=== PATIENT | female | born 1965 | race Caucasian/White ===

== ENCOUNTER 2017-12-11 08:16 | Inpatient (IN) | payer BC ==
[~2017-12-11] VITALS: Ht 154.9 cm; Wt 90.4 kg
[~2017-12-11 08:16] MED LIST: ALBU6.7H INH; EPIN0.1516 IM; EPIN0.3A3 IM; EPIN0.3P17 IM; PRED10TA PO
[2017-12-11] MEDS ORDERED: nitroGLYCERIN 0.4mg SUBLingual tab SL PRN ×2 (08:20→10:00)
[2017-12-11] MEDS ORDERED: aspirin 81mg tab.chew PO ONE (08:20)
[2017-12-11 08:50] LABS: BASOPHILS % (AUTO) 0.6 % (0-1); EOSINOPHILS # (AUTO) 0.2 X10'3 (0-0.9); EOSINOPHILS % (AUTO) 2.4 % (0-6); HEMATOCRIT 42.2 % (35.0-45.0); HEMOGLOBIN 14.6 g/dl (12.0-16.0); LYMPHOCYTES # (AUTO) 1.9 X10'3 (1.1-4.8); MEAN CORPUSCULAR HEMOGLOBIN 30.8 PG (27.0-31.0); MEAN CORPUSCULAR HGB CONC 34.5 % (33.0-36.5); MEAN CORPUSCULAR VOLUME 89.2 FL (78-98); MONOCYTES # (AUTO) 0.5 X10'3 (0-0.9); MONOCYTES % (AUTO) 6.4 % (2-12); NEUTROPHILS # (AUTO) 4.5 X10'3 (1.8-7.7); NEUTROPHILS % (AUTO) 63.6 % (42-75); PLATELET COUNT 331 X10'3 (140-440); RED BLOOD COUNT 4.74 X10'6 (4.20-5.60); RED CELL DISTRIBUTION WIDTH 13.4 % (11.5-14.5); WHITE BLOOD COUNT 7.1 X10'3 (4.5-11.0)
[2017-12-11 09:08] LABS: ALANINE AMINOTRANSFERASE 43 U/L (12-78); ALBUMIN 3.2 G/DL (3.4-5.0); ALBUMIN/GLOBULIN RATIO 0.9 (1.1-1.5); ALKALINE PHOSPHATASE 84 IU/L (46-116); ANION GAP 13 (8-16); ASPARTATE AMINO TRANSFERASE 23 U/L (10-37); BILIRUBIN,TOTAL 0.4 MG/DL (0.1-1.0); BLOOD UREA NITROGEN 9 MG/DL (7-18); BUN/CREATININE RATIO 15.3 (6.6-38.0); CHLORIDE 103 MMOL/L (99-107); CREATININE 0.59 MG/DL (0.40-0.90); GLUCOSE 120 MG/DL (70-104); POTASSIUM 3.5 MMOL/L (3.5-5.1); SODIUM 140 MMOL/L (135-145); TOTAL CARBON DIOXIDE 24.4 MMOL/L (24-32); TOTAL PROTEIN 6.8 G/DL (6.4-8.2); eGFR > 90 ML/MIN
[2017-12-11 09:15] LABS: MAGNESIUM 1.8 MG/DL (1.5-2.4)
[2017-12-11] MEDS ORDERED: NO HOME MEDS (09:29)
[2017-12-11] MEDS ORDERED: CAFFEINE CITRATE 60 MG/3 ML injection vial IV PRN (10:00)
[2017-12-11] MEDS ORDERED: magnesium 1gm/100ml D5W IVPB 100 ML IV PRN (10:00)
[2017-12-11] MEDS ORDERED: ondansetron/PF 4mg/2ml inj IV PRN (10:00)
[2017-12-11] MEDS ORDERED: normal saline 1000ml 1,000 ML IV SCH (10:00)
[2017-12-11] MEDS ORDERED: acetaminophen 325mg tablet PO PRN (10:00)
[2017-12-11] MEDS ORDERED: regadenoson 0.4mg/5ml syringe IV PRN (10:00)
[2017-12-11] MEDS ORDERED: magnesium 4gm in 100ml NS 100 ML IV PRN (10:00)
[2017-12-11] MEDS ORDERED: potassium Cl 20 mEq SR tablet PO PRN ×2 (10:00)
[2017-12-11] MEDS ORDERED: HYDROcodone/acetaminophen 5mg/325mg tablet PO PRN (10:00)
[2017-12-11] MEDS ORDERED: potassium Cl 40MEQ/NS 500ml 500 ML IV PRN ×2 (10:00)
[2017-12-11] MEDS ORDERED: magnesium Cl slow-release 64mg tablet PO PRN (10:00)
[2017-12-11] MEDS ORDERED: morphine 2 MG/ML inj. syringe IV PRN (10:00)
[2017-12-11] MEDS ORDERED: docusate sod 100mg capsule PO PRN (10:00)
[2017-12-11] MEDS ORDERED: metoprolol tartrate 1mg/ml inj IV PRN (10:00)
[2017-12-11] MEDS ORDERED: mag hydrox/Alum hydrox/simeth 30ml oral suspension PO PRN (10:00)
[2017-12-11 11:45] VITALS: BP 155/79
[2017-12-11 12:47] LABS: CHOLESTEROL 187 MG/DL (0-200); HDL CHOLESTEROL 31 MG/DL (35-60); LDL CHOLESTEROL 139 MG/DL (50-100); TRIGLYCERIDES 165 MG/DL (20-135)
[2017-12-11 12:51] LABS: HEMOGLOBIN A1C 5.7 % (4.5-6.2)
[2017-12-11 18:00] VITALS: BP 149/56
[2017-12-11] MEDS: heparin, porcine 5000 units/ml vial SQ SCH (20:40)
[2017-12-11] MEDS ORDERED: temazepam 15mg capsule PO PRN (21:00)
[2017-12-11 22:00] VITALS: BP 120/56
[2017-12-12] VITALS (18 sets, daily range): BP systolic 101–176; BP diastolic 54–89
[2017-12-12 07:14] LABS: BASOPHILS # (AUTO) 0.1 X10'3 (0-0.2); EOSINOPHILS # (AUTO) 0.2 X10'3 (0-0.9); EOSINOPHILS % (AUTO) 2.8 % (0-6); HEMATOCRIT 40.5 % (35.0-45.0); HEMOGLOBIN 14.1 g/dl (12.0-16.0); LYMPHOCYTES # (AUTO) 1.9 X10'3 (1.1-4.8); LYMPHOCYTES % (AUTO) 28.7 % (21-51); MEAN CORPUSCULAR HEMOGLOBIN 30.7 PG (27.0-31.0); MEAN CORPUSCULAR VOLUME 87.8 FL (78-98); MEAN PLATELET VOLUME 7.7 FL (7.4-10.4); MONOCYTES # (AUTO) 0.4 X10'3 (0-0.9); MONOCYTES % (AUTO) 6.4 % (2-12); NEUTROPHILS % (AUTO) 61.1 % (42-75); PLATELET COUNT 347 X10'3 (140-440); RED BLOOD COUNT 4.61 X10'6 (4.20-5.60); RED CELL DISTRIBUTION WIDTH 13.8 % (11.5-14.5); WHITE BLOOD COUNT 6.5 X10'3 (4.5-11.0)
[2017-12-12 07:27] LABS: GLUCOSE 116 MG/DL (70-104); POTASSIUM 3.6 MMOL/L (3.5-5.1); SODIUM 140 MMOL/L (135-145)
[2017-12-12 07:28] LABS: ALBUMIN 2.9 G/DL (3.4-5.0); ANION GAP 9 (8-16); BLOOD UREA NITROGEN 9 MG/DL (7-18); BUN/CREATININE RATIO 14.3 (6.6-38.0); CALCIUM 8.1 MG/DL (8.5-10.1); CHLORIDE 105 MMOL/L (99-107); CREATININE 0.63 MG/DL (0.40-0.90); MAGNESIUM 1.9 MG/DL (1.5-2.4); TOTAL CARBON DIOXIDE 26.4 MMOL/L (24-32); eGFR > 90 ML/MIN
[2017-12-12] MEDS ORDERED: K and/or MAG REPLACEMENT MC SCH (08:00)
[2017-12-12] MEDS: heparin, porcine 5000 units/ml vial SQ SCH (08:05)
[2017-12-12] MEDS ORDERED: CAFFEINE CITRATE 60 MG/3 ML injection vial IV ONE (09:03)
[2017-12-12] MEDS ORDERED: regadenoson 0.4mg/5ml syringe IV ONE (09:03)
[2017-12-12] MEDS ORDERED: amLODIPine 5mg tablet PO SCH (11:30)
[2017-12-12] MEDS ORDERED: cloNIDine 0.1 mg tablet PO PRN (11:30)
[2017-12-12] MEDS ORDERED: ASPI-1071 PO (11:34)
[2017-12-12] MEDS ORDERED: NOR5T PO (11:34)
[2017-12-13] MEDS ORDERED: aspirin 81mg tablet.DR PO SCH (08:00)
== END 2017-12-12 15:15 | disposition home or self-care (01) | DRG 313 ==
LOC: ER 08:16 → ED HOLD 10:00 → PCU 3S 11:45
PROVIDERS: ADMIT Internal Medicine; ATTEND Internal Medicine
PROC: 4A02XM4 Measurement of Cardiac Total Activity, External Approach (ICD-10-PCS; principal; 2017-12-12)
PROC: 3E033HZ Introduction of Radioactive Substance into Peripheral Vein, Percutaneous Approach (ICD-10-PCS; 2017-12-12)
DX: R07.89 Other chest pain (principal); R03.0 Elevated blood-pressure reading, without diagnosis of hypertension; E66.01 Morbid (severe) obesity due to excess calories; R16.0 Hepatomegaly, not elsewhere classified; Z88.1 Allergy status to other antibiotic agents; Z88.8 Allergy status to other drugs, medicaments and biological substances; Z88.0 Allergy status to penicillin; Z91.030 Bee allergy status; Z91.018 Allergy to other foods; Z68.37 Body mass index [BMI] 37.0-37.9, adult; Z79.899 Other long term (current) drug therapy
CPT/HCPCS: 36415; 71045; 76700; 78452; 80048; 80053; 80061; 83036; 83735; 83880; 84484; 85025; 93005; 93017; 93306; 99285; A9500; J1644; J2270; J7030

== ENCOUNTER 2018-07-27 09:19 | Outpatient (CLI) | payer BC ==
[~2018-07-27 09:19] MED LIST changes: -ALBU6.7H INH; +ASPI-1071 PO; +BARIUM SULFATE 340 ML SUSP.RECON***PROCEDURE AREA ONLY**DONT ENTER PO ONE; +BARIUM SULFATE/METHYLCELLULOSE 600 ML SUSPENSION BOTTLE**DONT ENTER PO ONE; -EPIN0.1516 IM; -EPIN0.3A3 IM; -EPIN0.3P17 IM; +NOR5T PO; -PRED10TA PO; +SIMETHICONE/SOD BICARB/CIT AC PACKET PO ONE
== END 2018-07-27 23:59 | disposition home or self-care (01) ==
LOC: RAD 09:19
PROVIDERS: ATTEND Family Medicine
DX: K44.9 Diaphragmatic hernia without obstruction or gangrene (principal); K22.2 Esophageal obstruction
CPT/HCPCS: 74245

== ENCOUNTER 2019-07-12 09:48 | Emergency (ER) | payer BC ==
[~2019-07-12] VITALS: Ht 154.9 cm; Wt 110.0 kg
[~2019-07-12 09:48] MED LIST changes: -BARIUM SULFATE 340 ML SUSP.RECON***PROCEDURE AREA ONLY**DONT ENTER PO ONE; -BARIUM SULFATE/METHYLCELLULOSE 600 ML SUSPENSION BOTTLE**DONT ENTER PO ONE; -SIMETHICONE/SOD BICARB/CIT AC PACKET PO ONE
[2019-07-12] MEDS ORDERED: famotidine/PF 10 mg/ml inj IV ONE (10:15)
[2019-07-12] MEDS ORDERED: diphenhydrAMINE 50 mg/ml inj IV ONE (10:15)
[2019-07-12] MEDS ORDERED: dexamethasone 4mg/ml inj IV ONE (10:50)
[2019-07-12 11:48] VITALS: BP 132/86
== END 2019-07-12 12:17 | disposition home or self-care (01) ==
LOC: ER 09:49
DX: T78.40XA Allergy, unspecified, initial encounter (principal); K13.0 Diseases of lips; Z88.0 Allergy status to penicillin; Z88.1 Allergy status to other antibiotic agents; Z88.8 Allergy status to other drugs, medicaments and biological substances; Z79.899 Other long term (current) drug therapy; X58.XXXA Exposure to other specified factors, initial encounter
CPT/HCPCS: 96374; 96375; 99284; J1100; J1200; J3490

== ENCOUNTER 2019-11-28 11:47 | Observation (INO) | payer BC ==
[~2019-11-28] VITALS: Ht 154.9 cm; Wt 88.6 kg
[2019-11-28 12:33] LABS: BASOPHILS % (AUTO) 0.7 % (0-1); EOSINOPHILS # (AUTO) 0.2 X10'3 (0-0.9); EOSINOPHILS % (AUTO) 2.7 % (0-6); HEMATOCRIT 45.5 % (35.0-45.0); HEMOGLOBIN 15.7 g/dl (12.0-16.0); LYMPHOCYTES # (AUTO) 2.3 X10'3 (1.1-4.8); LYMPHOCYTES % (AUTO) 32.6 % (21-51); MEAN CORPUSCULAR HEMOGLOBIN 30.3 PG (27.0-31.0); MEAN CORPUSCULAR HGB CONC 34.5 g/dL (33.0-36.5); MEAN CORPUSCULAR VOLUME 87.8 FL (78-98); MEAN PLATELET VOLUME 8.1 FL (7.4-10.4); MONOCYTES # (AUTO) 0.4 X10'3 (0-0.9); MONOCYTES % (AUTO) 5.6 % (2-12); NEUTROPHILS # (AUTO) 4.1 X10'3 (1.8-7.7); NEUTROPHILS % (AUTO) 58.4 % (42-75); PLATELET COUNT 304 X10'3 (140-440); RED BLOOD COUNT 5.18 X10'6 (4.20-5.60); RED CELL DISTRIBUTION WIDTH 13.7 % (11.5-14.5); WHITE BLOOD COUNT 6.9 X10'3 (4.5-11.0)
[2019-11-28 12:39] LABS: ALANINE AMINOTRANSFERASE 46 U/L (12-78); ALBUMIN 3.4 G/DL (3.4-5.0); ALBUMIN/GLOBULIN RATIO 0.9 (1.1-1.5); ALKALINE PHOSPHATASE 105 IU/L (46-116); ANION GAP 10 (8-16); ASPARTATE AMINO TRANSFERASE 26 U/L (10-37); BILIRUBIN,TOTAL 0.2 MG/DL (0.1-1.0); BLOOD UREA NITROGEN 9 MG/DL (7-18); BUN/CREATININE RATIO 10.6 (6.6-38.0); CALCIUM 8.6 MG/DL (8.5-10.1); CHLORIDE 102 MMOL/L (99-107); CREATININE 0.85 MG/DL (0.40-0.90); GLUCOSE 250 MG/DL (70-104); POTASSIUM 3.8 MMOL/L (3.5-5.1); SODIUM 137 MMOL/L (135-145); TOTAL CARBON DIOXIDE 24.8 MMOL/L (24-32); TOTAL PROTEIN 7.3 G/DL (6.4-8.2); eGFR 70 ML/MIN
[2019-11-28 12:41] LABS: PARTIAL THROMBOPLASTIN TIME 27 SECONDS (22-32)
[2019-11-28 12:43] LABS: TROPONIN I < 0.04 NG/ML (0.0-0.05)
[2019-11-28] MEDS ORDERED: iohexol 350MG/ML 100ml bottle IV ONE (13:01)
--- NOTE | 2019-11-28 13:56 | NUR ---
Emeka garcia in ED - 11/28/19 at 1825 by SERJIO C-COLLAR WAS TAKEN OFF C-SPINE CLEARED BY INDIA Balbuena AT [id number]
[2019-11-28] MEDS ORDERED: LINA290C PO (14:04)
[2019-11-28] MEDS ORDERED: DICY20TA11 PO (14:04)
[2019-11-28] MEDS ORDERED: AMLO10TA13 PO (14:04)
[2019-11-28] MEDS ORDERED: PANT40TA54 PO (14:04)
[2019-11-28] MEDS ORDERED: ondansetron/PF 4mg/2ml inj IV PRN (16:20)
[2019-11-28] MEDS ORDERED: acetaminophen 325mg tablet PO PRN (16:20)
[2019-11-28] MEDS ORDERED: magnesium 4gm in 100ml NS 100 ML IV PRN (16:20)
[2019-11-28] MEDS ORDERED: magnesium 2GM in 50ml NS 50 ML IV PRN (16:20)
[2019-11-28] MEDS ORDERED: potassium CL 10mEq/100ml bag 100 ML IV PRN ×2 (16:20)
[2019-11-28] MEDS ORDERED: potassium Cl 20 mEq SR tablet PO PRN ×2 (16:20)
[2019-11-28] MEDS ORDERED: magnesium Cl slow-release 64mg tablet PO PRN (16:20)
[2019-11-28] MEDS: HYDROcodone/acetaminophen 5mg/325mg tablet PO PRN (18:05)
[2019-11-28] MEDS: normal saline 1000ml 1,000 ML IV SCH (18:06)
--- NOTE | 2019-11-28 18:28 | NUR ---
PT SITTING UP IN BED EATING DINNER.
[2019-11-28 19:10] VITALS: BP 134/61
--- NOTE | 2019-11-28 19:10 | NUR ---
Patient in room ED 3. I have received report from Hans SUMMERS and had the opportunity to ask questions and assume patient care.
--- NOTE | 2019-11-28 19:20 | NUR ---
pt to floor
[2019-11-28] MEDS: K and/or MAG REPLACEMENT MC SCH (20:00)
[2019-11-28 22:00] VITALS: BP 148/88
[2019-11-28] MEDS: morphine 2 MG/ML inj. syringe IV PRN (22:28)
[2019-11-29] MEDS: normal saline 1000ml 1,000 ML IV SCH ×2 (04:11→14:58)
[2019-11-29] MEDS ORDERED: glucagon, human recombinant 1mg kit SUBCUT PRN (04:35)
[2019-11-29] MEDS ORDERED: dextrose ORAL solution 15 GM/59 ML bottle PO PRN ×2 (04:35)
[2019-11-29] MEDS ORDERED: dextrose 50%-water 50ml dispensing syringe IV PRN ×2 (04:35)
[2019-11-29] MEDS ORDERED: insulin Lispro (HumaLOG) vial - multi-dose SQ SCH (04:35)
[2019-11-29] MEDS: HYDROcodone/acetaminophen 5mg/325mg tablet PO PRN (05:41)
[2019-11-29 06:00] VITALS: BP 138/78
--- NOTE | 2019-11-29 06:51 | NUR ---
Problems reprioritized. Patient report given, questions answered & plan of care reviewed with Sandhya RN.
[2019-11-29 06:59] LABS: BASOPHILS # (AUTO) 0.1 X10'3 (0-0.2); EOSINOPHILS # (AUTO) 0.2 X10'3 (0-0.9); HEMATOCRIT 39.8 % (35.0-45.0); HEMOGLOBIN 13.8 g/dl (12.0-16.0); LYMPHOCYTES # (AUTO) 2.6 X10'3 (1.1-4.8); LYMPHOCYTES % (AUTO) 39.4 % (21-51); MEAN CORPUSCULAR HEMOGLOBIN 30.5 PG (27.0-31.0); MEAN CORPUSCULAR HGB CONC 34.6 g/dL (33.0-36.5); MONOCYTES # (AUTO) 0.4 X10'3 (0-0.9); MONOCYTES % (AUTO) 6.3 % (2-12); NEUTROPHILS # (AUTO) 3.4 X10'3 (1.8-7.7); NEUTROPHILS % (AUTO) 50.3 % (42-75); PLATELET COUNT 267 X10'3 (140-440); RED BLOOD COUNT 4.52 X10'6 (4.20-5.60); RED CELL DISTRIBUTION WIDTH 13.8 % (11.5-14.5); WHITE BLOOD COUNT 6.7 X10'3 (4.5-11.0)
[2019-11-29 07:14] LABS: ALBUMIN 2.9 G/DL (3.4-5.0); ANION GAP 6 (8-16); BLOOD UREA NITROGEN 9 MG/DL (7-18); CALCIUM 7.9 MG/DL (8.5-10.1); CHLORIDE 106 MMOL/L (99-107); CHOL/HDL RATIO 7.4 (0.00-4.99); CHOLESTEROL 200 MG/DL (0-200); CREATININE 0.69 MG/DL (0.40-0.90); GLUCOSE 117 MG/DL (70-104); HDL CHOLESTEROL 27 MG/DL (35-60); LDL CHOLESTEROL 155 MG/DL (50-100); MAGNESIUM 1.8 MG/DL (1.5-2.4); POTASSIUM 3.9 MMOL/L (3.5-5.1); SODIUM 140 MMOL/L (135-145); TOTAL CARBON DIOXIDE 27.6 MMOL/L (24-32); TRIGLYCERIDES 195 MG/DL (20-135); eGFR 89 ML/MIN
[2019-11-29] MEDS: morphine 2 MG/ML inj. syringe IV PRN (07:32)
[2019-11-29] MEDS: K and/or MAG REPLACEMENT MC SCH (08:00)
[2019-11-29] MEDS ORDERED: dicyclomine 10 MG capsule PO SCH (08:00)
[2019-11-29] MEDS ORDERED: amLODIPine 5mg tablet PO SCH (08:00)
[2019-11-29 10:00] VITALS: BP 121/65
[2019-11-29] MEDS ORDERED: ondansetron/PF 4mg/2ml inj IV ONE (10:20)
[2019-11-29] MEDS ORDERED: diphenhydrAMINE 50 mg/ml inj IV ONE (10:20)
[2019-11-29] MEDS ORDERED: ketorolac trometh. 30mg/ml inj. IV ONE (10:35)
--- NOTE | 2019-11-29 12:20 | NUR ---
DM Consult: A1C less than 7 and not appropriate for DM ed at this time. To f/u 12/02 for initial assessment. Addendum: 11/29/19 at [address] Amended: Links added.
[2019-11-29] MEDS ORDERED: ketorolac trometh. 30mg/ml inj. IV SCH (14:00)
[2019-11-29 14:14] VITALS: BP 112/61
[2019-11-29] MEDS ORDERED: BACL-11 PO (15:39)
--- NOTE | 2019-11-29 17:10 | NUR ---
Instructed patient on discharge medication, and patient understands to go pick it up at her pharmacy right after discharge. Patient instructed via Dr. Lara to follow up with her primary care physician regarding whether or not she should not return to work. Also instructed patient to follow up with her primary care doctor regarding her borderline A1C of 6.0. Patient has no further questions. All belongings sent with patient and pt left via wheelchair.
[2019-11-29] MEDS ORDERED: insulin glargine (Lantus) pen - multi-dose SQ SCH (21:00)
== END 2019-11-29 17:10 | disposition home or self-care (01) ==
LOC: ER 11:47 → ED HOLD 16:20 → ORTHO 4S 19:16
PROVIDERS: ADMIT Internal Medicine; ATTEND Internal Medicine
DX: R51 Headache (principal); E11.65 Type 2 diabetes mellitus with hyperglycemia; R41.82 Altered mental status, unspecified; G45.9 Transient cerebral ischemic attack, unspecified; I10 Essential (primary) hypertension; E66.01 Morbid (severe) obesity due to excess calories; Z86.19 Personal history of other infectious and parasitic diseases; Z90.49 Acquired absence of other specified parts of digestive tract; Z98.51 Tubal ligation status; Z79.899 Other long term (current) drug therapy; Z88.1 Allergy status to other antibiotic agents; Z88.0 Allergy status to penicillin; Z88.8 Allergy status to other drugs, medicaments and biological substances; Z91.030 Bee allergy status; Z91.018 Allergy to other foods; Z68.36 Body mass index [BMI] 36.0-36.9, adult
CPT/HCPCS: 36415; 70450; 70496; 70498; 70551; 71045; 80048; 80053; 80061; 82948; 83036; 83735; 84484; 85025; 85610; 85730; 87081; 93005; 96361; 96374; 96375; 96376; 99285; G0378; J1200; J1815; J1885; J2270; J2405; J7030; Q9967

== ENCOUNTER 2020-07-31 09:28 | Observation (INO) | payer BC ==
[2020-07-30 18:00] VITALS: BP 131/71
[~2020-07-31] VITALS: Ht 154.9 cm; Wt 83.1 kg
[~2020-07-31 09:28] MED LIST changes: +AMLO10TA13 PO; -ASPI-1071 PO; +BACL-11 PO; +DICY20TA11 PO; +LINA290C PO; -NOR5T PO; +PANT40TA54 PO
[2020-07-31] MEDS ORDERED: normal saline 1000ml 1,000 ML IV ONE (10:10)
[2020-07-31] MEDS ORDERED: acetaminophen 325mg tablet PO ONE (10:10)
[2020-07-31] MEDS ORDERED: diphenhydrAMINE 50 mg/ml inj IV ONE (10:10)
[2020-07-31] MEDS ORDERED: ketorolac trometh. 30mg/ml inj. IV ONE (10:10)
[2020-07-31] MEDS ORDERED: metoclopramide 5 mg/ml inj IV ONE (10:10)
[2020-07-31] MEDS ORDERED: LORazepam 2 mg/ml vial IV ONE (10:20)
--- NOTE | 2020-07-31 10:21 | NUR ---
pt back from ct scanner, lab in drawing blood
--- NOTE | 2020-07-31 10:22 | NUR ---
[id number]
[2020-07-31 10:35] LABS: BASOPHILS % (AUTO) 0.6 % (0-1); EOSINOPHILS # (AUTO) 0.2 X10'3 (0-0.9); EOSINOPHILS % (AUTO) 3.8 % (0-6); HEMATOCRIT 41.2 % (35.0-45.0); HEMOGLOBIN 14.4 g/dl (12.0-16.0); LYMPHOCYTES % (AUTO) 38.2 % (21-51); MEAN CORPUSCULAR HGB CONC 34.9 g/dL (33.0-36.5); MEAN CORPUSCULAR VOLUME 88.7 FL (78-98); MONOCYTES # (AUTO) 0.3 X10'3 (0-0.9); MONOCYTES % (AUTO) 6.3 % (2-12); NEUTROPHILS # (AUTO) 2.7 X10'3 (1.8-7.7); NEUTROPHILS % (AUTO) 51.1 % (42-75); PLATELET COUNT 296 X10'3 (140-440); RED BLOOD COUNT 4.64 X10'6 (4.20-5.60); RED CELL DISTRIBUTION WIDTH 13.5 % (11.5-14.5); WHITE BLOOD COUNT 5.2 X10'3 (4.5-11.0)
[2020-07-31 10:47] LABS: PARTIAL THROMBOPLASTIN TIME 25 SECONDS (22-32)
[2020-07-31 10:48] LABS: ALANINE AMINOTRANSFERASE 38 U/L (12-78); ALBUMIN 3.4 G/DL (3.4-5.0); ALKALINE PHOSPHATASE 102 IU/L (46-116); ANION GAP 8 (8-16); ASPARTATE AMINO TRANSFERASE 19 U/L (10-37); BILIRUBIN,TOTAL 0.2 MG/DL (0.1-1.0); BLOOD UREA NITROGEN 12 MG/DL (7-18); BUN/CREATININE RATIO 14.6 (6.6-38.0); CALCIUM 8.4 MG/DL (8.5-10.1); CHLORIDE 107 MMOL/L (99-107); CREATININE 0.82 MG/DL (0.40-0.90); GLUCOSE 148 MG/DL (70-104); POTASSIUM 3.6 MMOL/L (3.5-5.1); SODIUM 144 MMOL/L (135-145); TOTAL CARBON DIOXIDE 29.1 MMOL/L (24-32); TOTAL PROTEIN 6.8 G/DL (6.4-8.2); eGFR 73 ML/MIN
[2020-07-31 10:52] LABS: TROPONIN I < 0.04 NG/ML (0.0-0.05)
--- NOTE | 2020-07-31 11:59 | NUR ---
PT C/C CHANGED FROM STROKE ALERT TO NEUMANN, PER DR BERRIOS
[2020-07-31] MEDS ORDERED: NORT25CA PO (12:36)
[2020-07-31] MEDS ORDERED: ATOR40TA PO (12:36)
[2020-07-31] MEDS ORDERED: METF500T PO (12:36)
[2020-07-31] MEDS ORDERED: LISI10TA27 PO (12:36)
[2020-07-31] MEDS ORDERED: BACL10TA7 PO (12:50)
--- NOTE | 2020-07-31 12:51 | NUR ---
MRI SCREENING FORM COMPLETED AND FAXED
[2020-07-31] MEDS ORDERED: magnesium 2GM in 50ml NS 50 ML IV PRN (13:10)
[2020-07-31] MEDS ORDERED: ondansetron/PF 4mg/2ml inj IV PRN (13:10)
[2020-07-31] MEDS ORDERED: acetaminophen 325mg tablet PO PRN (13:10)
[2020-07-31] MEDS ORDERED: magnesium Cl slow-release 64mg tablet PO PRN (13:10)
[2020-07-31] MEDS ORDERED: potassium Cl 20 mEq SR tablet PO PRN ×2 (13:10)
[2020-07-31] MEDS ORDERED: potassium Cl 40MEQ/1/2NS 520ml 520 ML IV PRN ×2 (13:10)
[2020-07-31] MEDS ORDERED: magnesium 4gm in 100ml NS 100 ML IV PRN (13:10)
[2020-07-31 14:18] LABS: GLUCOSE,CSF 60 MG/DL (40-75); TOTAL PROTEIN,CSF 43 MG/DL (15-45)
[2020-07-31 14:36] LABS: APPEARANCE,CSF CLEAR; CSF SUPERNATANT COLOR COLORLESS
[2020-07-31 14:37] LABS: CSF RBC 3 /CU MM (0); CSF VOLUME 8 ML; TUBE# COUNTED 4
[2020-07-31 14:39] LABS: CSF WBC CT 2 /CU MM (0-5)
--- NOTE | 2020-07-31 15:51 | NUR ---
CALL PLACED TO MRI X2. LEFT MESSAGE. MRI ORDERED 3 HRS AGO. ATTEMPTING TO FIND OUT AN ETA. NOTIFIED VARINDER MORSE, SHE MADE CALLS TO APRIL TRETN AND CALL PLACED TO HARESH ODONNELL, TO INQUIRE IF WE HAVE MRI.
--- NOTE | 2020-07-31 16:22 | NUR ---
ATTEMPTED TO CALL MRI AGAIN. MSG LEFT D/T NO ANSWER
[2020-07-31] MEDS: HYDROcodone/acetaminophen 5mg/325mg tablet PO PRN ×2 (17:00→23:09)
--- NOTE | 2020-07-31 17:53 | NUR ---
Received report from MELINA Pandey in ED. Pt will come up to floor after MRI in wheelchair.
--- NOTE | 2020-07-31 18:05 | NUR ---
Problems reprioritized. Patient report given, questions answered & plan of care reviewed with MELINA De La Cruz.
[2020-07-31] MEDS ORDERED: K and/or MAG REPLACEMENT MC SCH (20:00)
[2020-07-31] MEDS: docusate sod 100mg capsule PO SCH (20:00)
[2020-07-31 21:18] LABS: HEMOGLOBIN A1C 5.8 % (4.5-6.2)
[2020-07-31] MEDS: normal saline 1000ml 1,000 ML IV SCH ×2 (23:08→23:10)
[2020-07-31 23:41] VITALS: BP 131/71
[2020-07-31 23:43] VITALS: BP 112/64
--- NOTE | 2020-08-01 05:47 | NUR ---
pt resting. no aura or c/o headache this am. noted pt needs home medications re-ordered and neuro tele suggested to increase nortriptaline. no orders from hospitalist of the sort. MRI results in [facility].
[2020-08-01 06:00] VITALS: BP 113/58
--- NOTE | 2020-08-01 06:43 | NUR ---
Patient in room [facility]TH[facility] 4014. I have received report from shane SUMMERS and had the opportunity to ask questions and assume patient care.
[2020-08-01 06:47] LABS: BASOPHILS % (AUTO) 0.7 % (0-1); EOSINOPHILS # (AUTO) 0.2 X10'3 (0-0.9); EOSINOPHILS % (AUTO) 3.7 % (0-6); HEMATOCRIT 38.6 % (35.0-45.0); HEMOGLOBIN 13.3 g/dl (12.0-16.0); LYMPHOCYTES # (AUTO) 2.4 X10'3 (1.1-4.8); LYMPHOCYTES % (AUTO) 43.7 % (21-51); MEAN CORPUSCULAR HEMOGLOBIN 30.9 PG (27.0-31.0); MEAN CORPUSCULAR HGB CONC 34.5 g/dL (33.0-36.5); MEAN CORPUSCULAR VOLUME 89.5 FL (78-98); MEAN PLATELET VOLUME 8.2 FL (7.4-10.4); MONOCYTES # (AUTO) 0.4 X10'3 (0-0.9); MONOCYTES % (AUTO) 6.6 % (2-12); NEUTROPHILS # (AUTO) 2.4 X10'3 (1.8-7.7); NEUTROPHILS % (AUTO) 45.3 % (42-75); PLATELET COUNT 271 X10'3 (140-440); RED BLOOD COUNT 4.32 X10'6 (4.20-5.60); WHITE BLOOD COUNT 5.4 X10'3 (4.5-11.0)
[2020-08-01 06:54] LABS: ALBUMIN 2.9 G/DL (3.4-5.0); ANION GAP 7 (8-16); BLOOD UREA NITROGEN 11 MG/DL (7-18); BUN/CREATININE RATIO 15.5 (6.6-38.0); CALCIUM 8.3 MG/DL (8.5-10.1); CHLORIDE 108 MMOL/L (99-107); CREATININE 0.71 MG/DL (0.40-0.90); GLUCOSE 93 MG/DL (70-104); POTASSIUM 3.7 MMOL/L (3.5-5.1); SODIUM 143 MMOL/L (135-145); TOTAL CARBON DIOXIDE 28.1 MMOL/L (24-32); eGFR 86 ML/MIN
[2020-08-01] MEDS: docusate sod 100mg capsule PO SCH (08:00)
[2020-08-01] MEDS: HYDROcodone/acetaminophen 5mg/325mg tablet PO PRN (08:04)
[2020-08-01] MEDS ORDERED: pneumococcal 23-VAL P-sac vacc 25 mcg/0.5ml vial IMVAC ONE (10:00)
[2020-08-01 11:00] VITALS: BP 113/76
[2020-08-01] MEDS ORDERED: lisinopril 10 MG tablet PO SCH (12:05)
[2020-08-01] MEDS ORDERED: baclofen 10mg tablet PO PRN ×2 (12:05→12:27)
[2020-08-01] MEDS ORDERED: NORT25CA PO (12:57)
--- NOTE | 2020-08-01 13:38 | NUR ---
patient medicated x1 for headache 09/22 with some effect. seen by Dr walden is for discharge. All discharge instructions given to patient. patient awaiting ride appears stable for DC.
--- NOTE | 2020-08-01 13:59 | NUR ---
Dc home via private car to home with family
[2020-08-01] MEDS ORDERED: metFORMIN 500mg tablet PO SCH (17:00)
[2020-08-01] MEDS ORDERED: nortriptyline 25mg capsule PO SCH (21:00)
[2020-08-02] MEDS ORDERED: dicyclomine 10 MG capsule PO SCH (08:00)
[2020-08-02] MEDS ORDERED: (Linaclotide (Linzess) 1 CAP) PO SCH (08:00)
[2020-08-02] MEDS ORDERED: amLODIPine 5mg tablet PO SCH (08:00)
[2020-08-02] MEDS ORDERED: atorvastatin 20mg tablet PO SCH (08:00)
== END 2020-08-01 13:55 | disposition home or self-care (01) ==
LOC: ER 09:29 → INTOOBSV 13:09 → ED HOLD 13:09 → ORTHO 4S 18:15
PROVIDERS: ADMIT Internal Medicine; ATTEND Internal Medicine
DX: G43.909 Migraine, unspecified, not intractable, without status migrainosus (principal); R51.9 Headache, unspecified; G45.9 Transient cerebral ischemic attack, unspecified; E11.9 Type 2 diabetes mellitus without complications; I10 Essential (primary) hypertension; E78.5 Hyperlipidemia, unspecified; K21.9 Gastro-esophageal reflux disease without esophagitis; Z79.4 Long term (current) use of insulin; Z79.899 Other long term (current) drug therapy; Z88.0 Allergy status to penicillin; Z88.1 Allergy status to other antibiotic agents; Z88.8 Allergy status to other drugs, medicaments and biological substances; Z91.018 Allergy to other foods; Z91.030 Bee allergy status
CPT/HCPCS: 36415; 62270; 70450; 70551; 71045; 80048; 80053; 82945; 82948; 83036; 83735; 84157; 84484; 85025; 85610; 85730; 86592; 87081; 89051; 93005; 96361; 96374; 96375; 99285; G0378; J1200; J1885; J2060; J2765; J7030